=== PATIENT | male | born 1970 | race Caucasian/White ===

== ENCOUNTER → 2017-03-28 | Outpatient (CLI) | payer OTHER | LOC: LAB 22:04 | DX: Z02.83 Encounter for blood-alcohol and blood-drug test (principal) | CPT/HCPCS: 36415 ==

== ENCOUNTER 2021-11-07 02:30 | Emergency (ER) | payer OTHER ==
[2021-11-07] MEDS ORDERED: VISTARIL25 MG PO (03:11)
[2021-11-07] MEDS ORDERED: ELIMITE 5% CREA60 GM TOP (03:11)
== END 2021-11-07 03:15 | disposition home or self-care (01) ==
LOC: ER1 02:30
DX: L29.8 Other pruritus (principal); F41.9 Anxiety disorder, unspecified; Z88.8 Allergy status to other drugs, medicaments and biological substances; F17.210 Nicotine dependence, cigarettes, uncomplicated
CPT/HCPCS: 99282